=== PATIENT | male | born 1975 | race Caucasian/White ===

== ENCOUNTER 2016-08-29 16:14 | Emergency (ER) | payer MEDICARE, MEDICAID ==
[2016-08-29 16:32] VITALS: BP 136/84
--- NOTE | 2016-08-29 17:02 | UC ---
Lower Extremity/Ankle HPI - HPI Summary HPI Summary: complaint of having a large metal mixing machine that was dropped on his toe 2 days ago this morning he pulled off the toenail lots of bleeding from toenail great toe painful when he is ambulating only not taking any medications for pain - History of Current Complaint Chief Complaint: UCLowerExtremity Stated Complaint: TOE INJURY Time Seen by Provider: 08/29/16 16:54 Hx Obtained From: Patient - Allergies/Home Medications Allergies/Adverse Reactions: Allergies Allergy/AdvReac Type Severity Reaction Status Date / Time No Known Allergies Allergy Verified 10/22/12 17:32 PMH/Surg Hx/FS Hx/Imm Hx Previously Healthy: Yes Endocrine History Of: Reports: Diabetes Denies: Thyroid Disease Cardiovascular History Of: Reports: Hypertension Denies: Cardiac Disorders Respiratory History Of: Denies: COPD, Asthma GI/ History Of: Denies: Ulcer - Surgical History Surgical History: Yes Surgery Procedure, Year, and Place: reconstruction nose at - Family History Known Family History: Positive: Hypertension, Diabetes - parents Negative: Cardiac Disease - Social History Occupation: Employed Full-time Lives: With Family Alcohol Use: None Substance Use Type: None Smoking Status (MU): Never Smoked Tobacco Review of Systems Constitutional: Negative Skin: Negative Eyes: Negative ENT: Negative Respiratory: Negative Cardiovascular: Negative Gastrointestinal: Negative Genitourinary: Negative Motor: Negative Neurovascular: Negative Musculoskeletal: Other: - right great toe Neurological: Negative Psychological: Negative All Other Systems Reviewed And Are Negative: Yes Physical Exam Triage Information Reviewed: Yes Appearance: No Pain Distress, Well-Nourished, Obese Vital Signs: Initial Vital Signs Temp 98.1 F 08/29/16 16:28 Pulse 91 08/29/16 16:28 Resp 16 08/29/16 16:28 BP 136/84 08/29/16 16:28 Pulse Ox 98 08/29/16 16:28 Vital Signs Reviewed: Yes Eyes: Positive: Conjunctiva Clear ENT: Positive: Pharynx normal, TMs normal Neck: Positive: No Lymphadenopathy Respiratory: Positive: Lungs clear, Normal breath sounds, No respiratory distress Cardiovascular: Positive: RRR, No Murmur, Pulses Normal Abdomen Description: Positive: Nontender, Soft Bowel Sounds: Positive: Present Musculoskeletal: Positive: Other: - RLE- great toe tender throughout- toenail missing -4x6mm open wound metatarsals without tendernss Neurological: Positive: Alert Psychological Exam: Normal Lower Extremity Course/Dx - Course Course Of Treatment: exam completed. x-ray negative for fracture. will start pt on antibiotic for wound under toenail removal d/t lack of personal hygeine, edema and erythema,and hx of DM - Differential Dx/Diagnosis Differential Diagnosis/HQI/PQRI: Contusion, Fracture (Closed) Provider Diagnoses: right great toe contusion- loss of toenail Discharge - Discharge Plan Condition: Stable Disposition: HOME Prescriptions: Cephalexin CAP* [Keflex CAP*] 500 mg PO TID #21 cap Patient Education Materials: Nail Removal (ED), Abrasion (ED) Forms: *Work Release Referrals: Grace Zuñiga MD [Primary Care Provider] - Additional Instructions: Please take antibiotic as directed If your toe becomes more painful swollen and red or you develop a fever please make appointment with your primary care provider or return to urgent care Increase fluids and rest Take acetaminophen or ibuprofen for fever or pain Please review your discharge instructions. If your symptoms do not improve please call your primary care provider or return to urgent care. Your blood pressure is pre-hypertensive reading. Please contact your primary care provider within 1 day -4 weeks for further evaluation
--- NOTE | 2016-08-29 17:41 | RAD ---
Indication: Direct trauma to the RIGHT great toe 3 days ago. Nail fell off. Distal pain. Comparison: None. Technique: 3 views of the RIGHT great toe. REPORT AND IMPRESSION: Negative for fracture or malalignment. Soft tissue swelling and subtle subcutaneous emphysema at the nailbed region. Mild osteoarthritis at the first metatarsal phalangeal joint.
== END 2016-08-29 18:00 | disposition home or self-care (01) ==
LOC: UCEAST 16:14
DX: S90.111A Contusion of right great toe without damage to nail, initial encounter (principal); W20.8XXA Other cause of strike by thrown, projected or falling object, initial encounter; Y93.9 Activity, unspecified; Y92.9 Unspecified place or not applicable; E11.9 Type 2 diabetes mellitus without complications; I10 Essential (primary) hypertension; E66.9 Obesity, unspecified
CPT/HCPCS: 99212; G0463

== ENCOUNTER 2017-02-04 09:58 | Emergency (ER) | payer MEDICARE, MEDICAID ==
[2017-02-04 10:05] VITALS: BP 149/71
--- NOTE | 2017-02-04 11:46 | UC ---
Skin Complaint HPI - HPI Summary HPI Summary: RED FIRM TENDER AREA ON RIGHT (MONS AREA OF) GROIN FOR FIVE DAYS. NO DISCHARGE. NO FEVER. NO HISTORY OF MRSA. NO HISTORY OF ABSCESSES IN THE PAST. - History of Current Complaint Chief Complaint: UCSkin Time Seen by Provider: 02/04/17 10:28 Stated Complaint: SOFT TISSUE Hx Obtained From: Patient Onset/Duration: Gradual Onset, Lasting Days, Still Present Skin Exposure Onset/Duration: Days Ago Onset Severity: Moderate Current Severity: Moderate Pain Intensity: 7 Pain Scale Used: 0-10 Numeric Location: Discrete - RIGHT GROIN Character: Redness, Raised, Painful Aggravating Factor(s): Touch Associated Signs & Symptoms: Positive: Tenderness, Red Streaks. Negative: Fever , Chills, Hoarseness, Throat Tightening, Rash, Drainage, Joint Swelling Related History: Possible Reaction to: Environmental Exposure - Allergy/Home Medications Allergies/Adverse Reactions: Allergies Allergy/AdvReac Type Severity Reaction Status Date / Time No Known Allergies Allergy Verified 10/22/12 17:32 Review of Systems Constitutional: Negative Skin: Other - ABSCESS RIGHT (MONS AREA OF) GROIN Eyes: Negative ENT: Negative Respiratory: Negative Cardiovascular: Negative Gastrointestinal: Negative Genitourinary: Negative Motor: Negative Neurovascular: Negative Musculoskeletal: Negative Neurological: Negative Psychological: Negative Is Patient Immunocompromised?: No All Other Systems Reviewed And Are Negative: Yes PMH/Surg Hx/FS Hx/Imm Hx Previously Healthy: Yes - Surgical History Surgical History: Yes Surgery Procedure, Year, and Place: reconstruction nose at - Family History Known Family History: Positive: Hypertension, Diabetes - parents Negative: Cardiac Disease - Social History Occupation: Employed Full-time Lives: With Family Alcohol Use: None Substance Use Type: None Smoking Status (MU): Never Smoked Tobacco Physical Exam Triage Information Reviewed: Yes Appearance: Well-Appearing, Well-Nourished, Pain Distress - MILD, Obese Vital Signs: Initial Vital Signs Temp 98.4 F 02/04/17 10:01 Pulse 96 02/04/17 10:01 Resp 18 02/04/17 10:01 BP 149/71 02/04/17 10:01 Pulse Ox 98 02/04/17 10:01 Eye Exam: Normal ENT Exam: Normal ENT: Positive: Normal ENT inspection, Hearing grossly normal, TMs normal Dental Exam: Normal Neck exam: Normal Neck: Positive: Supple Respiratory Exam: Normal Respiratory: Positive: Chest non-tender, Lungs clear, Normal breath sounds Cardiovascular Exam: Normal Cardiovascular: Positive: RRR, No Murmur, Pulses Normal Abdominal Exam: Normal Abdomen Description: Positive: Nontender, No Organomegaly, Soft Musculoskeletal Exam: Normal Musculoskeletal: Positive: Strength Intact, ROM Intact Neurological Exam: Normal Psychological Exam: Normal Skin: Positive: Other - 3CM X 2CM INDURATED ABSCESS WITH SURROUND ING ERRYTHEMA RIGHT MONS AREA OF GROIN Course/Dx - Course Course Of Treatment: WILL TAKE ANTIBIOTICS AND CALL GENERAL SURGERY FOR AN APPOINTMENT. - Differential Diagnoses - Skin Complaint Differential Diagnoses: Cellulitis, Contact Dermatitis, Impetigo, MRSA, Systemic Illness, Tick Born Illness - Diagnoses Provider Diagnoses: INDURATED ABSCESS RIGHT GROIN Discharge - Discharge Plan Condition: Stable Disposition: HOME Prescriptions: DOXYcycline CAP(*) [DOXYcycline 100MG CAP(*)] 100 mg PO BID #20 cap Patient Education Materials: Cellulitis (ED), Abscess (ED) Forms: *Work Release Referrals: Endy Cisneros MD [Medical Doctor] - Grace Zuñiga MD [Primary Care Provider] - Images Front/Back of Body, Lg ([place]): 1 - 3CM X 2CM INDURATED ABSCESS WITH SURROUND ING ERRYTHEMA RIGHT MONS AREA OF GROIN
== END 2017-02-04 11:10 | disposition home or self-care (01) ==
LOC: UCEAST 09:58
DX: L02.214 Cutaneous abscess of groin (principal)
CPT/HCPCS: 99212; G0463

== ENCOUNTER 2017-08-09 09:55 | Emergency (ER) | payer MEDICAID, MEDICARE ==
[2017-08-09 10:06] VITALS: BP 158/99
[2017-08-09] MEDS ORDERED: Tetan/Diph/Pertus SYR(Tdap)* 0.5 ML SYR(BOOSTRIX) use SYR IM ONE (10:21)
--- NOTE | 2017-08-09 10:35 | UC ---
Jamin Marie Julia, scribed for Celi Allred MD on 08/09/17 at 1027 . Bite Injury/Animal HPI - HPI Summary HPI Summary: This patient is a 42 year old M presenting to [facility] [place] with a chief complaint of with redness of the left second finger and hand s/p a cat bite on 08/07/17 with sudden swelling and increased pain today. The patient rates the pain 8/10 in severity. Symptoms aggravated by moving fingers. Patient reports decreased ROM and difficulty making a fist. Patient denies fever, headache, nausea, and vomiting. He states that his cat is up to date on all of its shots. He used peroxide to clean the wound. PMHx of IDDM diabetes. Pt had a check-up with his PCP at [place] yesterday. AIC was measured yesterday, he does not remember exact results but states they were good. Blood pressure measured at visit yesterday but was not informed of any elevation. Last blood glucose finger prick was normal roughly 120. Pt is not sure of last tetanus. 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 - History of Current Complaint Chief Complaint: UCBiteInjury Stated Complaint: CAT BITE Time Seen by Provider: 08/09/17 10:09 Hx Obtained From: Patient Severity Currently: Mild Severity Initially: Moderate Pain Intensity: 8 Pain Scale Used: 0-10 Numeric Onset/Duration: Gradual Onset, Worse Since - this morning Type of Bite: Pet - cat Has Animal Been Immunized?: Yes Aggravating Factor(s): Other - movement of finger Associated Signs And Symptoms: Positive: Erythema, Swelling - Allergies/Home Medications Allergies/Adverse Reactions: Allergies Allergy/AdvReac Type Severity Reaction Status Date / Time No Known Allergies Allergy Verified 08/09/17 10:06 PMH/Surg Hx/FS Hx/Imm Hx - Additional Past Medical History Additional PMH: obesity Endocrine History: Diabetes - Surgical History Surgical History: Yes Surgery Procedure, Year, and Place: reconstruction nose at - Family History Known Family History: Positive: Unknown - Pt is adopted. 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 Zuñiga within the week; does not know his BP reading. Gastrointestinal: Negative Genitourinary: Negative Motor: Negative Neurovascular: Negative Musculoskeletal: Edema - over bite into left hand Neurological: Negative Psychological: Negative Is Patient Immunocompromised?: No All Other Systems Reviewed And Are Negative: Yes Physical Exam Triage Information Reviewed: Yes Appearance: Pain Distress - mild to moderate., Obese Vital Signs: Initial Vital Signs Temp 97.8 F 08/09/17 10:04 Pulse 92 08/09/17 10:04 Resp 18 08/09/17 10:04 BP 158/99 08/09/17 10:04 Pulse Ox 97 08/09/17 10:04 Vital Signs Reviewed: Yes Eyes: Positive: Conjunctiva Clear ENT: Positive: Pharynx normal Neck: Positive: Supple, Nontender, No Lymphadenopathy Respiratory: Positive: Lungs clear, Normal breath sounds Cardiovascular: Positive: RRR, No Murmur Musculoskeletal Exam: Other - left hand with erythema over the dorsum extending from the PIP of the3rd digit over the hand 10 x 6 cm. Pain with extension of the 3rd digit. Puncture sealed --2 mm on PIP of 3rd digit. Mild swelling, palm is soft and not indurated, warm or red. Musculoskeletal: Positive: Strength Intact Neurological Exam: Normal Skin Exam: Other - erythema over dorsum of left hand as above. Bite Injury Course/Dx - Course Course Of Treatment: augmentin for cellulitis; tetanus booster given. - Differential Dx/Diagnosis Differential Diagnosis/HQI/PQRI: Cellulitis, Puncture, Deep Space Infection Provider Diagnoses: cellulitis secondary to cat bite, left hand. Elevated blood pressure. Discharge - Sign-Out/Discharge Documenting (check all that apply): Discharge - Discharge Plan Condition: Stable Disposition: HOME Prescriptions: Amoxicillin/Clavulanate TAB* [Augmentin TAB 875*] 875 mg PO BID #20 tab Patient Education Materials: Animal Bite (ED), Cellulitis (ED), Diphtheria/ Pertussis/Tetanus Vaccine (By injection) Forms: *Work Release Referrals: Grace Zuñiga MD [Primary Care Provider] - Additional Instructions: You have an infection from the cat bite which should respond to oral antibiotics. If the redness on your left hand worsens and progresses past your wrist, please go to the emergency room for treatment because you might need to have antibiotics intravenously. You should see improvement in the pain and redness by late tomorrow, and should have a re-check if you are not seeing significant improvement. You can use acetaminophen 1000mg up to 3 times per day for control of pain. You have been given a tetanus booster today; be sure to report this to your primary care provider. It is good for 10 years. Your blood pressure was elevated today, and should be repeated within a within a week. - Billing Disposition and Condition Condition: STABLE Disposition: HOME The documentation as recorded by the Jamin lowry Julia accurately reflects the service I personally performed and the decisions made by me, Celi Allred MD.
== END 2017-08-09 10:44 | disposition home or self-care (01) ==
LOC: UCEAST 09:55
DX: L03.114 Cellulitis of left upper limb (principal); Z23 Encounter for immunization; R03.0 Elevated blood-pressure reading, without diagnosis of hypertension
CPT/HCPCS: 90471; 90715; 99212; G0463

== ENCOUNTER 2018-03-23 13:15 | Emergency (ER) | payer MEDICARE, MEDICAID ==
[2018-03-23 13:31] VITALS: BP 143/96
--- NOTE | 2018-03-23 14:21 | UC ---
Skin Complaint HPI - HPI Summary HPI Summary: 42 y/o male presents to the urgent care c/o an open sore and some red rashes in his Rt lower abdomen for the past 2 weeks. Pt states he had upset stomach yesterday w/ 2 episodes of vomiting. he missed work yesterday and today. he request a note for work. he reports Hx of abscess in the past, but denies Hx of MRSA. Pt is a diabetic and stat h - History of Current Complaint Chief Complaint: UCAbdominalPain Time Seen by Provider: 03/23/18 14:09 Stated Complaint: SKIN COMPLAINT,VOMITING Hx Obtained From: Patient Onset/Duration: Gradual Onset, Lasting Weeks - 2 weeks Pain Intensity: 6 - Allergy/Home Medications Allergies/Adverse Reactions: Allergies Allergy/AdvReac Type Severity Reaction Status Date / Time No Known Allergies Allergy Verified 03/23/18 13:31 PMH/Surg Hx/FS Hx/Imm Hx - Surgical History Surgical History: Yes Surgery Procedure, Year, and Place: reconstruction nose at - Family History Known Family History: Positive: Unknown - Pt is adopted., Hypertension, Diabetes - parents Negative: Cardiac Disease - Social History Alcohol Use: None Substance Use Type: None Smoking Status (MU): Never Smoked Tobacco Physical Exam - Summary Physical Exam Summary: Vital Signs Reviewed: Yes General: well developed, well nourished female sitting in the examining table w/ o any apparent distress. Eyes: Positive: Conjunctiva Clear - PERRLA, EOMI ENT: Positive: Normal ENT inspection, Hearing grossly normal, Pharynx normal, TMs normal Neck: Positive: Supple, Nontender, No Lymphadenopathy Respiratory: Positive: Chest nontender, Lungs clear, Normal breath sounds Cardiovascular: Positive: RRR, No Murmur, Pulses Normal Abdomen Description: Positive: Nontender, No Organomegaly, Soft. Negative: CVA Tenderness (R), CVA Tenderness (L) Bowel Sounds: Positive: Present Musculoskeletal: Positive: Strength Intact, ROM Intact, No Edema Neurological Exam: Normal Psychological Exam: Normal Skin: Positive: rashes - RT ventral side of Rt forearm w/ erythematous patch w/ indistinct borders, warm to touch, swelling and tender to palpation. Triage Information Reviewed: Yes Vital Signs: Initial Vital Signs Temp 98.1 F 03/23/18 13:27 Pulse 97 03/23/18 13:27 Resp 18 03/23/18 13:27 BP 143/96 03/23/18 13:27 Pulse Ox 98 03/23/18 13:27 Course/Dx - Course Course Of Treatment: Pt is a diabetic with 3 patches of cellulitis in the RLQ abdomen s/p insect bites. One is open w/ mild drainage. Wound sample taken and sent to lab for culture to r/o MRSA. Wound irrigated with saline water. bacitracin applied and covered with sterile dressing. Pt Rx Bacitracin PO, bacitracin topical ointment. Pt advised if not improvement of symptoms to return to the urgent care or f/u with her PCP. If redness doubles in size or fever develops despite taking ABX to go immediately to the ER. Pt understood and agreed - Differential Diagnoses - Skin Complaint Differential Diagnoses: Abscess, Cellulitis, Contact Dermatitis, Impetigo, Local Allergic Reaction, MRSA, Scabies - Diagnoses Provider Diagnosis: Uncontrolled hypertension, Cellulitis, abdominal wall Discharge - Sign-Out/Discharge Documenting (check all that apply): Patient Departure - D/c home All imaging exams completed and their final reports reviewed: No Studies - Discharge Plan Condition: Stable Disposition: HOME Prescriptions: Bacitracin OINTMENT* 1 applic TOPICAL BID #1 tube Ondansetron ODT TAB* [Zofran 4 MG Odt TAB*] 4 mg PO Q6H PRN #12 tab.odt PRN Reason: Vomiting Sulfamethox/Trimethoprim DS* [Bactrim DS 800/160 TAB*] 1 tab PO BID #14 tab Patient Education Materials: Cellulitis (ED), Acute Nausea and Vomiting (ED), Low-Sodium Diet (ED) Forms: *Work Release Referrals: Grace Zuñiga MD [Primary Care Provider] - 2 Days Additional Instructions: 1-Please take full course of Antibiotic. 2- If redness and swelling doubles in size after 48 hrs of taking antibiotic and fever develops please go to the ER immediately. 3-Please keep areas clean and apply Bacitracin oint as directed to alleviate symptoms. 4-Please F/u with your PCP in 2-3 days to make sure symptoms are improving. 5-Wound culture was sent to the lab, You will be notified of any abnormality 6- Take Zofran PO as directed if you continue w/ vomiting. Increase hydration, eat small portions and rest. 7-Your BP is elevated today. please decrease salt in your diet, monitor BP and if it continues to be elevated please f/u with your PCP for further management - Billing Disposition and Condition Condition: STABLE Disposition: Home
== END 2018-03-23 14:55 | disposition home or self-care (01) ==
LOC: UCEAST 13:15
DX: L03.311 Cellulitis of abdominal wall (principal); B95.61 Methicillin susceptible Staphylococcus aureus infection as the cause of diseases classified elsewhere; I10 Essential (primary) hypertension
CPT/HCPCS: 87070; 87077; 87186; 87205; 99212; G0463